=== PATIENT | female | born 1955 | race Caucasian/White ===

== ENCOUNTER 2021-01-06 20:51 | Inpatient (IN) ==
[2021-01-06] MEDS ORDERED: Acetaminophen 325 MG TABLET PO PRN (23:53)
[2021-01-06] MEDS ORDERED: Ondansetron 4 MG/2 ML VIAL IVP PRN (23:53)
[2021-01-06] MEDS ORDERED: Naloxone 0.4 MG/ML INJ IVP PRN (23:53)
[2021-01-07] MEDS ORDERED: D5% in Water 1,000 ML IVC PRN (00:42)
[2021-01-07] MEDS ORDERED: *HR* Dextrose 50 % in Water (Vial) 50 ML VIAL IVP PRN (00:42)
[2021-01-07] MEDS ORDERED: Dextrose Gel 15 GM/37.5 ML TUBE PO PRN ×2 (00:42)
[2021-01-07] MEDS ORDERED: *HR* Heparin 5,000 UNIT/ML VIAL IVP PRN ×2 (00:43)
[2021-01-07] MEDS ORDERED: *HR* Heparin 5,000 UNIT/ML VIAL IVP ONE (00:43)
[2021-01-07] MEDS ORDERED: Aspirin 325 MG TABLET PO ONE (00:45)
[2021-01-07] MEDS ORDERED: Perflutren Lipid Microsphere 1.3 ML in 0.9 % Sodium Chloride 8.7 ML IVP PRN (01:26)
[2021-01-07] MEDS: Insulin LISPRO 300 UNITS/3 ML VIAL SUBQ SCH ×6 (01:29→19:44)
[2021-01-07] MEDS: Heparin 25,000UNIT/250ML 1/2NS 25,000 UNIT/250 ML IV.SOLN IVC SCH (01:40)
[2021-01-07] MEDS: Insulin DETEMIR 100 UNIT/ML X5UNITS SUBQ SCH ×2 (01:42→19:44)
[2021-01-07 01:45] LABS: Basophils # 0.1 K/mcL (0.0-0.2); Basophils % 0.4 %; Hematocrit 38.3 % (35.3-44.9); Hemoglobin 11.8 g/dL (11.5-15.4); Immature Granulocytes % 0.9 % (0-4); Lymphocytes # 1.5 K/mcL (0.6-4.6); Lymphocytes % 10.3 %; Mean Corpuscular HGB Conc 30.8 g/dL (31.6-35.5); Mean Corpuscular Hemoglobin 26.8 pg (28.0-33.3); Mean Platelet Volume 10.6 fL (9.4-12.4); Monocytes # 0.2 K/mcL (0.0-1.3); Monocytes % 1.4 %; Neutrophils # 12.3 K/mcL (1.6-8.9); Platelet Count 355 K/mcL (140-400); Red Cell Distribution Width 14.7 % (11.5-14.5); White Blood Count 14.1 K/mcL (4.3-11.1)
[2021-01-07 02:07] LABS: Albumin 4.3 g/dL (3.5-5.7); Albumin/Globulin Ratio 1.7 (1.1-2.2); Bilirubin,Total 0.4 mg/dL (0.3-1.0); Calcium 9.8 mg/dL (8.6-10.3); Globulin 2.6 g/dL (2.4-3.5); Magnesium 1.6 mg/dL (1.6-2.6); Potassium 4.4 mEq/L (3.5-5.1); Total Protein 6.9 g/dL (6.4-8.9)
[2021-01-07 02:44] LABS: ABG Base Excess -3 mEq/L (-2 to 3); ABG HCO3 21 mEq/L (21-27); ABG Oxygen Saturation 96 % (95-98); ABG PCO2 35 mmHg (35-45); ABG PO2 80 mmHg (85-104); ABG TCO2 22 mEq/L (20-26)
[2021-01-07] MEDS: Ipratropium/Albuterol Neb 3 ML IH SCH ×6 (04:03→20:55)
[2021-01-07 05:17] LABS: Adenovirus Not Detected (Not Detect); Bordetella Pertussis Not Detected (Not Detect); Chlamydophila pneumoniae Not Detected (Not Detect); Coronavirus 229E Not Detected (Not Detect); Coronavirus HKU1 Not Detected (Not Detect); Coronavirus NL63 Not Detected (Not Detect); Coronavirus OC43 Not Detected (Not Detect); Human Metapneumovirus Not Detected (Not Detect); Human Rhinovirus/Enterovirus Not Detected (Not Detect); Influenza A Subtype 2009 H1 Not Detected (Not Detect); Influenza B Not Detected (Not Detect); Mycoplasma pneumoniae Not Detected (Not Detect); Parainfluenza Virus 1 Not Detected (Not Detect); Parainfluenza Virus 2 Not Detected (Not Detect); Parainfluenza Virus 3 Not Detected (Not Detect); Parainfluenza Virus 4 Not Detected (Not Detect); Respiratory Syncytial Virus Not Detected (Not Detect); SARS-CoV-2 Not Detected (Not Detect)
[2021-01-07] MEDS: MethylPREDNISolone 40 MG/ML VIAL IVP SCH ×3 (05:34→17:10)
[2021-01-07] MEDS ORDERED: Nitroglycerin 0.1 MG PATCH.TD24 TD SCH (07:30)
[2021-01-07] MEDS ORDERED: Nitroglycerin 0.4 MG TAB.SUBL SL STA (09:51)
[2021-01-07] MEDS: Aspirin Enteric Coated 81 MG Tablet PO SCH (09:54)
[2021-01-07] MEDS: Furosemide 40 MG/4 ML VIAL IVP SCH ×2 (09:54→19:44)
[2021-01-07] MEDS: cefTRIAXone 1,000 MG in 0.9 % Sodium Chloride Mini Bag 100 ML IVPB SCH (10:13)
[2021-01-07] MEDS: Azithromycin 500 MG in 0.9 % Sodium Chloride 250 ML IVPB SCH (10:14)
[2021-01-07] MEDS ORDERED: Morphine Sulfate 2 MG/ML SYRINGE IVP PRN (10:32)
[2021-01-08] MEDS: Ipratropium/Albuterol Neb 3 ML IH SCH ×7 (00:03→23:47)
[2021-01-08] MEDS: MethylPREDNISolone 40 MG/ML VIAL IVP SCH ×4 (00:48→21:23)
[2021-01-08] MEDS: Insulin LISPRO 300 UNITS/3 ML VIAL SUBQ SCH ×5 (00:49→17:37)
[2021-01-08] MEDS: Heparin 25,000UNIT/250ML 1/2NS 25,000 UNIT/250 ML IV.SOLN IVC SCH ×2 (00:51→21:48)
[2021-01-08 01:22] LABS: Basophils % 0.2 %; Eosinophils % 0.1 %; Hemoglobin 11.1 g/dL (11.5-15.4); Immature Granulocytes % 0.8 % (0-4); Lymphocytes # 1.7 K/mcL (0.6-4.6); Lymphocytes % 10.5 %; Mean Corpuscular HGB Conc 30.8 g/dL (31.6-35.5); Mean Corpuscular Hemoglobin 26.6 pg (28.0-33.3); Mean Corpuscular Volume 86.3 fL (83.0-100.0); Monocytes # 0.9 K/mcL (0.0-1.3); Monocytes % 5.7 %; Neutrophils # 13.6 K/mcL (1.6-8.9); Platelet Count 398 K/mcL (140-400); Red Blood Count 4.17 M/mcL (3.82-4.97); Red Cell Distribution Width 14.9 % (11.5-14.5); Segmented Neutrophils % 82.7 %; White Blood Count 16.4 K/mcL (4.3-11.1)
[2021-01-08 01:39] LABS: Magnesium 1.9 mg/dL (1.6-2.6); Phosphorous 2.6 mg/dL (2.7-4.5); Potassium 3.7 mEq/L (3.5-5.1)
[2021-01-08] MEDS ORDERED: Dextrose Gel 15 GM/37.5 ML TUBE PO PRN (08:19)
[2021-01-08] MEDS ORDERED: Azithromycin 500 MG VIAL ONE (08:49)
[2021-01-08] MEDS ORDERED: Insulin DETEMIR 100 UNIT/ML X5UNITS SUBQ SCH ×2 (09:00→21:00)
[2021-01-08] MEDS: cefTRIAXone 1,000 MG in 0.9 % Sodium Chloride Mini Bag 100 ML IVPB SCH (09:07)
[2021-01-08] MEDS: Furosemide 40 MG/4 ML VIAL IVP SCH ×2 (09:08→21:24)
[2021-01-08] MEDS: Azithromycin 500 MG in 0.9 % Sodium Chloride 250 ML IVPB SCH (09:08)
[2021-01-08] MEDS: Aspirin Enteric Coated 81 MG Tablet PO SCH (09:09)
[2021-01-08] MEDS ORDERED: Insulin Human Regular 15 UNIT in 0.9 % Sodium Chloride 10 ML IV ONE (12:40)
[2021-01-08 14:56] LABS: Estimated Average Glucose 217 mg/dl; Hemoglobin A1C 9.2 %
[2021-01-08] MEDS ORDERED: Insulin LISPRO 300 UNITS/3 ML VIAL SUBQ SCH (21:00)
[2021-01-09] MEDS: Ipratropium/Albuterol Neb 3 ML IH SCH ×4 (04:49→15:33)
[2021-01-09] MEDS: MethylPREDNISolone 40 MG/ML VIAL IVP SCH ×2 (05:45)
[2021-01-09 07:19] LABS: Basophils % 0.1 %; Eosinophils % 0.1 %; Hematocrit 36.4 % (35.3-44.9); Hemoglobin 11.2 g/dL (11.5-15.4); Immature Granulocytes % 1.8 % (0-4); Lymphocytes # 2.5 K/mcL (0.6-4.6); Lymphocytes % 14.5 %; Mean Corpuscular HGB Conc 30.8 g/dL (31.6-35.5); Mean Corpuscular Hemoglobin 26.5 pg (28.0-33.3); Mean Corpuscular Volume 86.3 fL (83.0-100.0); Mean Platelet Volume 11.3 fL (9.4-12.4); Monocytes # 0.8 K/mcL (0.0-1.3); Monocytes % 4.8 %; Neutrophils # 13.7 K/mcL (1.6-8.9); Platelet Count 395 K/mcL (140-400); Red Blood Count 4.22 M/mcL (3.82-4.97); Red Cell Distribution Width 14.9 % (11.5-14.5); Segmented Neutrophils % 78.7 %; White Blood Count 17.4 K/mcL (4.3-11.1)
[2021-01-09 07:38] LABS: Calcium 10.4 mg/dL (8.6-10.3); Magnesium 2.1 mg/dL (1.6-2.6); Phosphorous 3.5 mg/dL (2.7-4.5); Potassium 3.8 mEq/L (3.5-5.1)
[2021-01-09] MEDS ORDERED: MethylPREDNISolone 40 MG/ML VIAL IVP SCH (08:00)
[2021-01-09] MEDS: Azithromycin 500 MG in 0.9 % Sodium Chloride 250 ML IVPB SCH (08:36)
[2021-01-09] MEDS: cefTRIAXone 1,000 MG in 0.9 % Sodium Chloride Mini Bag 100 ML IVPB SCH (08:36)
[2021-01-09] MEDS: Aspirin Enteric Coated 81 MG Tablet PO SCH (08:37)
[2021-01-09] MEDS: Insulin DETEMIR 100 UNIT/ML X5UNITS SUBQ SCH ×2 (08:38→09:00)
[2021-01-09] MEDS: Insulin LISPRO 300 UNITS/3 ML VIAL SUBQ SCH ×3 (08:40→17:09)
[2021-01-09] MEDS: Furosemide 40 MG/4 ML VIAL IVP SCH (09:00)
[2021-01-09] MEDS ORDERED: Isosorbide MONOnitrate (24 HR) 30 MG TAB.ER.24H PO SCH (12:00)
[2021-01-09] MEDS ORDERED: Insulin Human Regular 20 UNIT in 0.9 % Sodium Chloride 10 ML IV ONE (12:15)
[2021-01-09] MEDS: Heparin 25,000UNIT/250ML 1/2NS 25,000 UNIT/250 ML IV.SOLN IVC SCH (18:18)
[2021-01-09 18:53] VITALS: BP 140/66
[2021-01-10] MEDS ORDERED: Doxycycline 100 MG CAPSULE PO SCH (09:00)
[2021-01-10] MEDS ORDERED: predniSONE 20 MG TABLET PO SCH (09:00)
== END 2021-01-09 20:05 | disposition short-term general hospital (02) | DRG 871 ==
LOC: 2NENU
PROVIDERS: ADMIT Student in an Organized Health Care Education/Training Program; ATTEND Student in an Organized Health Care Education/Training Program

== ENCOUNTER 2021-02-21 20:35 | Inpatient (IN) ==
[2021-02-21] MEDS ORDERED: 0.9 % Sodium Chloride 1,000 ML IVC ONE ×2 (20:54)
[2021-02-21] MEDS ORDERED: Cefepime HCl 2,000 MG in Water for inj. (sterile) 20 ML IVP ONE (21:00)
[2021-02-21 21:29] LABS: Basophils % 0.4 %; Eosinophils # 0.1 K/mcL (0.0-0.6); Eosinophils % 1.6 %; Hematocrit 31.9 % (35.3-44.9); Immature Granulocytes % 0.6 % (0-4); Lymphocytes # 0.6 K/mcL (0.6-4.6); Lymphocytes % 6.9 %; Mean Corpuscular HGB Conc 31.3 g/dL (31.6-35.5); Mean Corpuscular Hemoglobin 26.9 pg (28.0-33.3); Mean Corpuscular Volume 85.8 fL (83.0-100.0); Mean Platelet Volume 10.2 fL (9.4-12.4); Monocytes # 0.1 K/mcL (0.0-1.3); Monocytes % 1.2 %; Neutrophils # 7.2 K/mcL (1.6-8.9); Platelet Count 328 K/mcL (140-400); Red Blood Count 3.72 M/mcL (3.82-4.97); Red Cell Distribution Width 16.4 % (11.5-14.5); Segmented Neutrophils % 89.3 %; White Blood Count 8.1 K/mcL (4.3-11.1)
[2021-02-21 21:39] LABS: INR 1.1; Prothrombin Time 13.1 Seconds (9.4-12.1)
[2021-02-21 21:42] LABS: Activated Partial Thrombo Time 25.3 Seconds (26.0-36.0)
[2021-02-21 21:54] LABS: Bilirubin,Urine Negative (Negative); Blood,Urine Negative (Negative); Clarity,Urine Clear (Clear); Color,Urine Light-Yellow (Yellow); Glucose,Urine (UA) Normal (Normal); Ketones,Urine Negative (Negative); Leukocyte Esterase,Urine Negative (Negative); Nitrite,Urine Negative (Negative); Protein,Urine Negative (Neg-Trace); Specific Gravity,Urine 1.014 (1.010-1.025); Urobilinogen,Urine Normal (Normal)
[2021-02-21 21:57] LABS: Albumin 4.3 g/dL (3.5-5.7); Bilirubin,Direct 0.1 mg/dL (0.0-0.2); Bilirubin,Indirect 0.3 mg/dL (0.0-1.0); Bilirubin,Total 0.4 mg/dL (0.3-1.0); Globulin 2.2 g/dL (2.4-3.5); Magnesium 1.8 mg/dL (1.6-2.6); Phosphorous 1.2 mg/dL (2.7-4.5); Potassium 3.4 mEq/L (3.5-5.1); Total Protein 6.5 g/dL (6.4-8.9); Troponin I 0.06 ng/mL (< 0.04)
[2021-02-21] MEDS ORDERED: Magic Mouthwash 10 ML UD Cup PO ONE (22:45)
[2021-02-21] MEDS ORDERED: Aspirin 325 MG TABLET PO ONE (23:09)
[2021-02-21] MEDS: Furosemide 40 MG/4 ML VIAL IVP ONE (23:10)
[2021-02-22] MEDS ORDERED: Naloxone 0.4 MG/ML INJ IVP PRN (00:10)
[2021-02-22] MEDS ORDERED: Melatonin 3 MG TABLET PO PRN (00:10)
[2021-02-22 01:22] LABS: Basophils % 0.4 %; Eosinophils # 0.1 K/mcL (0.0-0.6); Eosinophils % 1.3 %; Hematocrit 29.4 % (35.3-44.9); Immature Granulocytes % 1.2 % (0-4); Lymphocytes # 0.5 K/mcL (0.6-4.6); Mean Corpuscular HGB Conc 30.6 g/dL (31.6-35.5); Mean Corpuscular Hemoglobin 26.5 pg (28.0-33.3); Mean Corpuscular Volume 86.5 fL (83.0-100.0); Mean Platelet Volume 10.6 fL (9.4-12.4); Monocytes # 0.2 K/mcL (0.0-1.3); Monocytes % 1.9 %; Neutrophils # 6.8 K/mcL (1.6-8.9); Nucleated Red Blood Cells 0.3 /100 WBC (0); Platelet Count 300 K/mcL (140-400); Red Cell Distribution Width 16.4 % (11.5-14.5); Segmented Neutrophils % 88.2 %; White Blood Count 7.7 K/mcL (4.3-11.1)
[2021-02-22 01:40] LABS: Albumin 3.7 g/dL (3.5-5.7); Albumin/Globulin Ratio 1.7 (1.1-2.2); Bilirubin,Total 0.5 mg/dL (0.3-1.0); Calcium 8.6 mg/dL (8.6-10.3); Globulin 2.2 g/dL (2.4-3.5); Potassium 3.1 mEq/L (3.5-5.1); Total Protein 5.9 g/dL (6.4-8.9)
[2021-02-22] MEDS ORDERED: *HR* Dextrose 50 % in Water (Vial) 50 ML VIAL IVP PRN (02:29)
[2021-02-22] MEDS ORDERED: D5% in Water 1,000 ML IVC PRN (02:29)
[2021-02-22] MEDS ORDERED: Dextrose Gel 15 GM/37.5 ML TUBE PO PRN ×2 (02:29)
[2021-02-22] MEDS ORDERED: Vancomycin 1 EACH in 0.9 % Sodium Chloride 250 ML IVPB PRN (03:00)
[2021-02-22] MEDS: Ipratropium/Albuterol Neb 3 ML IH SCH ×6 (03:58→23:50)
[2021-02-22] MEDS ORDERED: Potassium Phosphate 44 MEQ in 0.9 % Sodium Chloride 250 ML IVPB ONE (04:15)
[2021-02-22 04:54] LABS: ABG Base Excess -2 mEq/L (-2 to 3); ABG HCO3 21 mEq/L (21-27); ABG Oxygen Saturation 96 % (95-98); ABG PCO2 29 mmHg (35-45); ABG PH 7.47 pH Units (7.32-7.45); ABG PO2 74 mmHg (85-104); ABG TCO2 22 mEq/L (20-26); Blood Gas Modality NIV
[2021-02-22] MEDS: *HR* Heparin 5,000 UNIT/ML VIAL SQ SCH ×3 (07:01→21:13)
[2021-02-22] MEDS: Acetaminophen 325 MG TABLET PO PRN ×3 (07:27→21:13)
[2021-02-22] MEDS ORDERED: Cefepime HCl 2,000 MG in Water for inj. (sterile) 20 ML IVP SCH (08:00)
[2021-02-22] MEDS: Furosemide 40 MG/4 ML VIAL IVP SCH ×2 (08:41→16:55)
[2021-02-22] MEDS: Insulin LISPRO 300 UNITS/3 ML VIAL SUBQ SCH ×3 (08:42→16:54)
[2021-02-22] MEDS: Magic Mouthwash 10 ML UD Cup PO PRN ×2 (08:49→20:59)
[2021-02-22] MEDS: Azithromycin 500 MG in 0.9 % Sodium Chloride 250 ML IVPB SCH (14:43)
[2021-02-22] MEDS ORDERED: Ondansetron ODT 4 MG TAB.RAPDIS PO PRN (15:30)
[2021-02-22] MEDS: Acyclovir 200 MG CAPSULE PO SCH (19:51)
[2021-02-22] MEDS: Cefepime HCl 2,000 MG in Water for inj. (sterile) 20 ML IVP SCH (19:51)
[2021-02-23] MEDS: Ipratropium/Albuterol Neb 3 ML IH SCH ×6 (04:05→23:20)
[2021-02-23] MEDS: *HR* Heparin 5,000 UNIT/ML VIAL SQ SCH ×3 (05:35→19:57)
[2021-02-23] MEDS: Aspirin Enteric Coated 81 MG Tablet PO SCH (08:01)
[2021-02-23] MEDS: Spironolactone 25 MG TABLET PO SCH (08:01)
[2021-02-23] MEDS: Insulin LISPRO 300 UNITS/3 ML VIAL SUBQ SCH ×3 (08:01→15:54)
[2021-02-23] MEDS: Acyclovir 200 MG CAPSULE PO SCH ×2 (08:02→19:33)
[2021-02-23] MEDS: allopurinoL 300 MG TABLET PO SCH (08:02)
[2021-02-23] MEDS: Furosemide 40 MG/4 ML VIAL IVP SCH ×2 (08:02→15:55)
[2021-02-23] MEDS ORDERED: Lenalidomide [Revlimid] 25 MG Capsule PO SCH (09:00)
[2021-02-23] MEDS ORDERED: Fenofibrate 54 MG TABLET PO SCH (09:00)
[2021-02-23] MEDS: Azithromycin 500 MG in 0.9 % Sodium Chloride 250 ML IVPB SCH (15:54)
[2021-02-23] MEDS: Magic Mouthwash 10 ML UD Cup PO PRN (16:03)
[2021-02-23] MEDS: Cefepime HCl 2,000 MG in Water for inj. (sterile) 20 ML IVP SCH (19:32)
[2021-02-23] MEDS: Insulin DETEMIR 100 UNIT/ML X5UNITS SUBQ SCH (19:58)
[2021-02-23 22:10] LABS: ABG Base Excess -3 mEq/L (-2 to 3); ABG HCO3 21 mEq/L (21-27); ABG Oxygen Saturation 92 % (95-98); ABG PCO2 35 mmHg (35-45); ABG PO2 64 mmHg (85-104); ABG TCO2 22 mEq/L (20-26)
[2021-02-23] MEDS: Ondansetron 4 MG/2 ML VIAL IVP PRN (22:13)
[2021-02-23 22:26] LABS: Hematocrit 32.7 % (35.3-44.9); Hemoglobin 10.1 g/dL (11.5-15.4); Mean Corpuscular HGB Conc 30.9 g/dL (31.6-35.5); Mean Corpuscular Hemoglobin 26.8 pg (28.0-33.3); Mean Corpuscular Volume 86.7 fL (83.0-100.0); Platelet Count 278 K/mcL (140-400); Red Blood Count 3.77 M/mcL (3.82-4.97); White Blood Count 9.4 K/mcL (4.3-11.1)
[2021-02-23 22:45] LABS: Heparin anti-factor XA UFH < 0.04 IU/mL (0.30-0.70)
[2021-02-24] MEDS: Ipratropium/Albuterol Neb 3 ML IH SCH ×6 (03:52→23:28)
[2021-02-24] MEDS: *HR* Heparin 5,000 UNIT/ML VIAL SQ SCH ×3 (05:08→23:10)
[2021-02-24] MEDS: Magic Mouthwash 10 ML UD Cup PO PRN (07:53)
[2021-02-24] MEDS: Furosemide 40 MG/4 ML VIAL IVP SCH ×2 (07:54→17:10)
[2021-02-24] MEDS: Aspirin Enteric Coated 81 MG Tablet PO SCH (07:54)
[2021-02-24] MEDS: Acyclovir 200 MG CAPSULE PO SCH ×2 (07:54→20:23)
[2021-02-24] MEDS: Acetaminophen 325 MG TABLET PO PRN (07:54)
[2021-02-24] MEDS: Insulin LISPRO 300 UNITS/3 ML VIAL SUBQ SCH ×3 (07:55→17:11)
[2021-02-24] MEDS: allopurinoL 300 MG TABLET PO SCH (07:55)
[2021-02-24] MEDS: Spironolactone 25 MG TABLET PO SCH (08:15)
[2021-02-24 08:47] LABS: Basophils % 0.3 %; Eosinophils # 0.1 K/mcL (0.0-0.6); Eosinophils % 1.8 %; Hematocrit 29.2 % (35.3-44.9); Immature Granulocytes % 1.1 % (0-4); Lymphocytes # 1.3 K/mcL (0.6-4.6); Lymphocytes % 20.4 %; Mean Corpuscular HGB Conc 30.8 g/dL (31.6-35.5); Mean Corpuscular Hemoglobin 26.2 pg (28.0-33.3); Mean Corpuscular Volume 85.1 fL (83.0-100.0); Mean Platelet Volume 12.1 fL (9.4-12.4); Monocytes # 0.3 K/mcL (0.0-1.3); Neutrophils # 4.5 K/mcL (1.6-8.9); Platelet Count 248 K/mcL (140-400); Red Blood Count 3.43 M/mcL (3.82-4.97); Red Cell Distribution Width 16.8 % (11.5-14.5); Segmented Neutrophils % 72.4 %; White Blood Count 6.2 K/mcL (4.3-11.1)
[2021-02-24 09:04] LABS: Calcium 8.6 mg/dL (8.6-10.3); Potassium 3.6 mEq/L (3.5-5.1)
[2021-02-24] MEDS ORDERED: Doxycycline 100 MG in 0.9 % Sodium Chloride Mini Bag 100 ML IVPB SCH (18:00)
[2021-02-24] MEDS: Ondansetron 4 MG/2 ML VIAL IVP PRN (19:04)
[2021-02-24] MEDS ORDERED: methylPREDNISolone 125 MG/2 ML VIAL ONE (19:34)
[2021-02-24] MEDS ORDERED: methylPREDNISolone 125 MG/2 ML VIAL IVP ONE (19:35)
[2021-02-24] MEDS ORDERED: Furosemide 40 MG/4 ML VIAL IVP ONE (19:45)
[2021-02-24] MEDS: Cefepime HCl 2,000 MG in Water for inj. (sterile) 20 ML IVP SCH (20:23)
[2021-02-24] MEDS: Albumin 25% 25gram/100mL 25 GM/100 ML IV.SOLN IVC SCH ×2 (20:23→22:14)
[2021-02-24] MEDS: Insulin DETEMIR 100 UNIT/ML X5UNITS SUBQ SCH (21:44)
[2021-02-24 22:51] LABS: Adenovirus Not Detected (Not Detect); Bordetella Pertussis Not Detected (Not Detect); Chlamydophila pneumoniae Not Detected (Not Detect); Coronavirus 229E Not Detected (Not Detect); Coronavirus HKU1 Not Detected (Not Detect); Coronavirus NL63 Not Detected (Not Detect); Coronavirus OC43 Not Detected (Not Detect); Human Metapneumovirus Not Detected (Not Detect); Human Rhinovirus/Enterovirus Not Detected (Not Detect); Influenza A Subtype 2009 H1 Not Detected (Not Detect); Influenza B Not Detected (Not Detect); Mycoplasma pneumoniae Not Detected (Not Detect); Parainfluenza Virus 1 Not Detected (Not Detect); Parainfluenza Virus 2 Not Detected (Not Detect); Parainfluenza Virus 3 Not Detected (Not Detect); Parainfluenza Virus 4 Not Detected (Not Detect); Respiratory Syncytial Virus Not Detected (Not Detect); SARS-CoV-2 Not Detected (Not Detect)
[2021-02-25] MEDS: Furosemide 40 MG/4 ML VIAL IVP ONE
[2021-02-25 00:34] VITALS: BP 99/61
== END 2021-02-25 00:45 | disposition short-term general hospital (02) | DRG 871 ==
LOC: EMEROOARM 20:35 → 2ANU 20:35
PROVIDERS: ADMIT Family Medicine; ATTEND Family Medicine

== ENCOUNTER 2021-12-23 04:12 | Inpatient (IN) ==
[2021-12-23] MEDS: EPINEPHrine 1 MG in D5% in Water 250 ML IVC SCH ×3 (04:45→12:26)
[2021-12-23] MEDS ORDERED: Naloxone 0.4 MG/ML INJ IVP PRN (05:11)
[2021-12-23] MEDS ORDERED: Artificial Tears SOLN 15 ML BOTTLE BOTH EYES PRN (05:15)
[2021-12-23] MEDS ORDERED: Furosemide 20 MG/2 ML VIAL IVP ONE (05:26)
[2021-12-23 05:27] LABS: ABG Base Excess -14 mEq/L (-2 to 3); ABG HCO3 15 mEq/L (21-27); ABG Oxygen Saturation 89 % (95-98); ABG PCO2 46 mmHg (35-45); ABG PH 7.11 pH Units (7.32-7.45); ABG PO2 75 mmHg (85-104); ABG TCO2 16 mEq/L (20-26); Blood Gas Modality ASSIST CONTROL; Blood Gas VT 450 cc
[2021-12-23] MEDS ORDERED: Norepinephrine 4 MG/254 ML IV.SOLN IVC SCH (05:30)
[2021-12-23] MEDS ORDERED: *HR* Dextrose 50 % in Water (Syg) 50 ML SYRINGE IVP PRN (05:37)
[2021-12-23] MEDS ORDERED: Dextrose Gel 15 GM/37.5 ML TUBE PO PRN ×2 (05:37)
[2021-12-23] MEDS ORDERED: D5% in Water 1,000 ML IVC PRN (05:37)
[2021-12-23] MEDS ORDERED: Perflutren Lipid Microsphere 1.3 ML in 0.9 % Sodium Chloride 8.7 ML IVP PRN (05:39)
[2021-12-23 05:59] LABS: Hematocrit 32.7 % (35.3-44.9); Hemoglobin 9.7 g/dL (11.5-15.4); Mean Corpuscular HGB Conc 29.7 g/dL (31.6-35.5); Mean Corpuscular Hemoglobin 27.4 pg (28.0-33.3); Mean Corpuscular Volume 92.4 fL (83.0-100.0); Mean Platelet Volume 10.4 fL (9.4-12.4); Nucleated Red Blood Cells 0.8 /100 WBC (0); Platelet Count 249 K/mcL (140-400); Red Blood Count 3.54 M/mcL (3.82-4.97); Red Cell Distribution Width 23.4 % (11.5-14.5); White Blood Count 2.4 K/mcL (4.3-11.1)
[2021-12-23] MEDS ORDERED: Azithromycin 500 MG in 0.9 % Sodium Chloride 250 ML IVPB SCH (06:00)
[2021-12-23 06:05] LABS: VBG Ionized Calcium 0.92 mmol/L (1.15-1.35)
[2021-12-23 06:19] LABS: Albumin 2.8 g/dL (3.5-5.7); Albumin/Globulin Ratio 1.3 (1.1-2.2); Bilirubin,Direct 0.4 mg/dL (0.0-0.2); Bilirubin,Indirect 0.1 mg/dL (0.0-1.0); Bilirubin,Total 0.5 mg/dL (0.3-1.0); Calcium 6.6 mg/dL (8.6-10.3); Globulin 2.1 g/dL (2.4-3.5); Magnesium 1.9 mg/dL (1.6-2.6); Potassium 3.8 mEq/L (3.5-5.1); Total Protein 4.9 g/dL (6.4-8.9)
[2021-12-23 06:24] LABS: INR 1.1; Prothrombin Time 12.7 Seconds (9.4-12.1)
[2021-12-23 06:26] LABS: Troponin I 0.45 ng/mL (< 0.04)
[2021-12-23] MEDS: Sodium Bicarbonate 150 MEQ in D5% in Water 1,000 ML IVC SCH ×2 (06:27→20:14)
[2021-12-23] MEDS: FentaNYL (PF) 1,000 MCG/100 ML IV.SOLN IVC SCH ×2 (06:46→13:28)
[2021-12-23] MEDS: Insulin LISPRO 300 UNITS/3 ML VIAL SUBQ SCH ×2 (06:47→11:58)
[2021-12-23 07:15] LABS: Anisocytosis 2+ (Not Present); Lymphocytes # 0.6 K/mcL (0.6-4.6); Monocytes # 0.1 K/mcL (0.0-1.3); Neutrophils # 1.7 K/mcL (1.6-8.9); Reactive Lymphocytes Present (Not Present)
[2021-12-23 07:21] LABS: Platelet Estimate Normal (Normal)
[2021-12-23] MEDS ORDERED: *HR* Heparin 5,000 UNIT/ML VIAL IVP ONE (07:49)
[2021-12-23] MEDS ORDERED: *HR* Heparin 5,000 UNIT/ML VIAL IVP PRN ×2 (07:49)
[2021-12-23] MEDS ORDERED: Heparin 25,000UNIT/250ML 1/2NS 25,000 UNIT/250 ML IV.SOLN IVC SCH (08:00)
[2021-12-23] MEDS ORDERED: cefTRIAXone 1,000 MG in 0.9 % Sodium Chloride Mini Bag 100 ML IVPB SCH (09:00)
[2021-12-23] MEDS ORDERED: Pantoprazole 40 MG VIAL IVP SCH ×2 (09:00→18:00)
[2021-12-23] MEDS: Artificial Tears SOLN 15 ML BOTTLE BOTH EYES SCH ×6 (09:04→23:22)
[2021-12-23] MEDS: Chlorhexidine Rinse 15 ML MOUTHWASH MM SCH ×2 (09:04→22:46)
[2021-12-23] MEDS ORDERED: Vasopressin 40 UNIT in D5% in Water 100 ML IVC SCH (10:15)
[2021-12-23 10:23] LABS: ABG Base Excess -7 mEq/L (-2 to 3); ABG HCO3 21 mEq/L (21-27); ABG Oxygen Saturation 88 % (95-98); ABG PCO2 54 mmHg (35-45); ABG PH 7.21 pH Units (7.32-7.45); ABG PO2 67 mmHg (85-104); ABG TCO2 23 mEq/L (20-26); Blood Gas Modality AF; Blood Gas VT 450 cc
[2021-12-23 11:02] LABS: Hematocrit 31.6 % (35.3-44.9); Hemoglobin 9.7 g/dL (11.5-15.4)
[2021-12-23 11:10] LABS: Heparin anti-factor XA UFH 0.62 IU/mL (0.30-0.70)
[2021-12-23 11:12] LABS: Activated Partial Thrombo Time 92.3 Seconds (26.0-36.0)
[2021-12-23 11:30] LABS: Calcium 5.9 mg/dL (8.6-10.3); Potassium 3.4 mEq/L (3.5-5.1)
[2021-12-23] MEDS: SODIUM CHLORIDE IVC SCH ×2 (12:28→20:35)
[2021-12-23] MEDS: NOREPINEPHRINE IVC SCH ×2 (12:28→20:35)
[2021-12-23] MEDS ORDERED: Dexmedetomidine HCl 400 MCG/100 ML MLS IVC SCH (12:30)
[2021-12-23] MEDS ORDERED: Cisatracurium 200 MG in 0.9 % Sodium Chloride 180 ML IVC SCH (12:30)
[2021-12-23] MEDS: Calcium Gluconate 1gm/50mL 1 GM/50 ML BAG IVPB SCH ×3 (13:26→14:50)
[2021-12-23] MEDS: Phenylephrine 10 MG in 0.9 % Sodium Chloride 250 ML IVC SCH ×4 (14:16→20:40)
[2021-12-23 17:32] LABS: Blood Gas VT 450 cc; VBG HCO3 20 mEq/L (21-27); VBG PCO2 31 mmHg (41-51); VBG PH 7.42 pH Units (7.32-7.42); VBG PO2 44 mmHg (25-50)
[2021-12-23 18:08] LABS: Calcium 6.6 mg/dL (8.6-10.3); Magnesium 1.5 mg/dL (1.6-2.6); Phosphorous 3.8 mg/dL (2.7-4.5); Potassium 3.7 mEq/L (3.5-5.1)
[2021-12-23] MEDS ORDERED: Phenylephrine 50 MG in 0.9 % Sodium Chloride 250 ML IVC SCH (23:00)
[2021-12-23 23:07] VITALS: TEMP 98.1
[2021-12-24] MEDS ORDERED: Cefepime HCl 1,000 MG in Water for inj. (sterile) 10 ML IVP SCH
[2021-12-24 01:38] VITALS: BP 104/53; PULSE 130
[2021-12-24 05:29] VITALS: O2SAT 74
[2021-12-24] MEDS ORDERED: Doxycycline 100 MG in 0.9 % Sodium Chloride Mini Bag 100 ML IVPB SCH (06:00)
== END 2021-12-24 02:09 | disposition expired | DRG 871 ==
LOC: ICNU 05:02
PROVIDERS: ADMIT Internal Medicine; ATTEND Internal Medicine